=== PATIENT | female | born 1980 | race Caucasian/White ===

== ENCOUNTER 2017-03-19 07:57 | Emergency (ER) | payer SELFPAY ==
[~2017-03-19] VITALS: Ht 177.8 cm; Wt 171.4 kg
[~2017-03-19 07:57] MED LIST: ALBUAER2 INH; AZIT250T PO; CEPH500C PO
[2017-03-19 08:02] VITALS: TEMP 36.9; Ht 177.8 cm; Wt 171.4 kg
--- NOTE | 2017-03-19 08:33 | DIAGNOSTIC IMAGING REPORT ---
RIGHT FOOT MIN 3 VIEWS ROUTINE CLINICAL HISTORY: R foot pain and swelling Right trauma COMPARISON: 08/08/2006 Discussion: interval disruption of the tarsal metatarsal complex of the second through fifth toes. Prominent findings seen at the first tarsometatarsal joint. The appearance suggestive of a Lisfranc fracture dislocation. Subtle periosteal reaction is noted. Considerable soft tissue edema is present. Bony mineralization is somewhat diminished compared to the prior exam. IMPRESSION: Lisfranc fracture dislocation right foot with fractures/displacement/dislocation second through fifth tarsal/metatarsal tarsal complex. Probable involvement first tarsometatarsal joint. Significant soft tissue edema. 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 It is possible these posttraumatic findings are superimposed upon baseline neuropathic joint although this was not seen on the prior study Electronically signed by: Trent Ag M.D. 03/19/2017 8:32 AM Dictated Date/Time: 03/19/2017 8:28 AM
--- NOTE | 2017-03-19 10:36 | EMERGENCY ROOM VISIT NOTE ---
ED Visit Note First contact with patient: 08:08 Chief Complaint: Right foot swelling. History of Present Illness: Ms. Ventura is a 36-year-old white female who ambulates into the ED accompanied by female friend complaining of right foot swelling. Patient reports approximately 2 weeks ago she was stepping off of about possible and as she put down her right foot she reports she heard a cracking sensation. She immediately had pain but that resolved shortly after it occurred. Then approximately one week ago she started noting swelling on the top of her foot. This continued and has been constant and getting worse. She has not identified any aggravating or alleviating factors related to the swelling. Associated with her swelling she reports a mild tingling sensation in the toes. She denies any associated fevers, chills, sweats, skin eruptions, skin color changes, back pain, abdominal pain, decreased appetite, hip pain, thigh pain, knee pain, lower leg pain, ankle pain and she denies any previous significant injuries or surgeries to this area. Review of Systems: As noted above in history of present illness. 8 body systems were reviewed and found to be negative as noted above. Past Medical History: Borderline diabetes. Current Medications: Patient denies. Allergies to Medications: Patient denies. Social History: Patient is currently employed; she feels safe in her home environment; she denies tobacco and alcohol use. Physical Examination: Vital Signs: Date Time Temp Pulse Resp B/P Pulse Ox O2 Delivery O2 Flow Rate FiO2 03/19/17 09:34 90 18 150/89 100 Room Air 03/19/17 08:02 36.9 84 18 157/85 98 Room Air GENERAL: 36-year-old female in no acute distress, nontoxic-appearing, afebrile and hemodynamically stable. NEUROLOGICAL: Awake, alert and oriented to person, place and time. Answering questions appropriately and following commands. No focal motor or sensory deficits. SKIN: Warm, dry and pink. RIGHT LOWER EXTREMITY: No gross bony deformity. No shortening or malrotation. No tenderness in the hip, thigh, knee, ankle. Mild tenderness over the top of the foot with moderate swelling. The skin is slightly erythematous but does not appear cellulitic and it is not hot to the touch. No lymphangitis. No palpable masses or abscesses. Moderate tenderness over the underlying bony structures. Full range of motion in plantar flexion and dorsiflexion of the ankle and flexion and extension of all toes. She was able to distinguish light sensations through all dermatomes of the foot. Capillary refill is brisk. ED Course: Patient is assessed as noted above. Patient was given ice for swelling. Right Foot X-Rays: Were reviewed by myself and read by the radiologist showing a Lisfranc fracture dislocation of the right foot with fracture/displacement/ dislocation of the second through fifth tarsal metatarsal complexes with possible involvement of the first tarsometatarsal joint. Significant soft tissue swelling. Patient was offered pain medication and refused. Patient's case was reviewed with Dr. yang her; we agreed on diagnostic approach, treatment, disposition and plan. Patient's case was consulted with Dr. Florian, orthopedics; he recommended transfer to a tertiary care center for fulfillment specialist. Patient's case was consulted with Dr. Kraus, orthopedist at [facility]; he recommended immobilization and close follow-up with ankle/admission specialist for outpatient evaluation. Patient was placed in a posterior ankle splint to immobilize the entire foot with Ortho-Glass; she was trialed on nonweight bearing crutches but was unsuccessful but was able to tolerate walker use. Patient was educated about today's findings and instructed on her treatment plan ; she verbalizes understanding and agreement with this plan. Clinical Impression: Multiple right foot fractures/dislocations; Lisfranc Fracture. Decision-Making: Initially my differential diagnosis I consider foot fracture, foot contusion, tendinitis, bursitis, foot sprain, and other causes. Disposition: Patient discharged home in stable condition accompanied by her sister; prior to departure she was reassessed and subjectively reported she was pain-free. Plan: Patient was encouraged to alternate ibuprofen or acetaminophen as needed for pain every 3 hours. Patient was encouraged use ice on the foot 4-5 times a day for 20-30 minutes and to keep her foot elevated while at rest. Patient was encouraged to avoid standing for long period some time; she was subsequently signed off of work until followed up at [facility] orthopedic clinic to see specialist within 48 hours. Patient was encouraged return the ED for worsening/uncontrolled swelling, uncontrolled pain, paresthesias or worsening numbness of the foot or any new/ concerning symptoms.
[2017-03-19 11:10] VITALS: BP 144/78; PULSE 87; O2SAT 99
== END 2017-03-19 11:11 | disposition home or self-care (01) ==
LOC: C.EDB 07:59 → C.EDA 11:11
DX: S93.324A Dislocation of tarsometatarsal joint of right foot, initial encounter (principal); S92.201A Fracture of unspecified tarsal bone(s) of right foot, initial encounter for closed fracture; M79.89 Other specified soft tissue disorders; R20.2 Paresthesia of skin; E11.9 Type 2 diabetes mellitus without complications; X58.XXXA Exposure to other specified factors, initial encounter

== ENCOUNTER 2017-04-04 13:51 | Emergency (ER) | payer OTHER ==
[2017-04-04 13:54] VITALS: TEMP 36.8; Ht 177.8 cm
--- NOTE | 2017-04-04 14:39 | DIAGNOSTIC IMAGING REPORT ---
RIGHT FOOT MIN 3 VIEWS ROUTINE CLINICAL HISTORY: Right foot pain. Evaluate for fracture. COMPARISON: Right foot radiographs March 19, 2017. FINDINGS: Disruption of the tarsometatarsal joints is noted with abnormal alignment of multiple tarsometatarsal articulations with extensive sclerosis and bone formation. The appearance is similar to exam of March 19, 2017. Dislocation of the right third metatarsophalangeal joint is unchanged. No interval fracture is noted. There is diffuse soft tissue swelling of the right foot. IMPRESSION: 1. No change in appearance of the right foot since exam of March 19, 2017 with markedly abnormal appearance of the tarsometatarsal joints which could reflect sequela of a Lisfranc fracture/dislocation or a neuropathic arthropathy. Dislocation of the right third metatarsophalangeal joint which is unchanged. 2. Diffuse soft tissue swelling of the right foot. Electronically signed by: Nick Belle M.D. 04/04/2017 2:37 PM Dictated Date/Time: 04/04/2017 2:31 PM
[2017-04-04 15:50] VITALS: BP 127/86; PULSE 106; O2SAT 93
--- NOTE | 2017-04-04 15:58 | EMERGENCY ROOM VISIT NOTE ---
ED Visit Note First contact with patient: 13:59 CHIEF COMPLAINT: Right foot injury 2 weeks ago Patient is a 36-year-old white female who returns to the emergency department accompanied by her sister for evaluation of right foot pain after being diagnosed with a fracture 2 weeks ago. The patient's injury was reportedly another 1-2 weeks prior to that. She was seen and evaluated here on 03/19. She was diagnosed with a Lisfranc fracture dislocation with fractures of her second through fourth metatarsals. Local orthopedic surgeon button clamper at that time was not comfortable managing the injury and recommended referral to a tertiary care center. Referral was made to [facility] in [place]. Please refer to provider and it risk and assurance senior manager notes from the 03/19 visit. Patient was supposed to hear back from orthopedics at [facility]. Patient and her sister return here today stating that they have heard nothing from [facility]. They were unable to find contact information to call on their own. Sister did attempt to contact local providers, but the patient does not have insurance and they would have to pay out of pocket to be seen. Patient reports that she is essentially nonweightbearing in her splint that was placed on 03/19. She has only changed the Shayne wraps. She is using crutches and walker. She has minimal pain. There has been no new fall or trauma. REVIEW OF SYSTEMS: Review of systems as per HPI. All other systems reviewed were negative. At least 6 systems reviewed. PMH: Electronic medical records are reviewed and summarized as above/below. See Problem List. SOCIAL HISTORY: Patient lives at home. She works as a cashier gambling. She does not smoke. PHYSICAL EXAM: Vital Signs: Reviewed Nurse's notes. CONSTITUTIONAL: Patient is a morbidly obese 36-year-old white female who is awake and alert and seated on the gurney in no acute distress. MUSCULOSKELETAL: Examination of the right lower extremity show the intact with a glass splint. This was removed. Skin is intact without ecchymosis or abrasions. Mild soft tissue swelling noted across the dorsum of the foot. She has diffuse tenderness over the dorsum of the foot. She will move the toes normally. There is no pain at the ankle. Capillary refills less than 2 seconds. Sensation to light touch is intact. Distal pulses are easily palpable. EMERGENCY DEPARTMENT COURSE: The patient was seen and examined as above. Her old records are reviewed. Splint was removed, and repeat x-rays were obtained today. Findings are as noted below. farmworkers, Joesph Pryor, was asked to speak with the patient and to help facilitate orthopedic follow-up. She also worked with the patient when they were here 2 weeks ago. She was able to obtain an appointment for the patient for next Friday with Dr. Marrero in the [place] office. Contact information was given to the patient. Patient was returned to a short leg Ortho-Glass splint. She will continue to use her crutches/walker and a nonweight bearing gait. She was given a note to keep her out of work until she is seen and cleared to return. She was discharged home with her sister in good condition. She does not have any physical exam findings to indicate infectious process including cellulitis. No calf pain or examination findings to indicate DVT. RIGHT FOOT MIN 3 VIEWS ROUTINE CLINICAL HISTORY: Right foot pain. Evaluate for fracture. COMPARISON: Right foot radiographs March 19, 2017. FINDINGS: Disruption of the tarsometatarsal joints is noted with abnormal alignment of multiple tarsometatarsal articulations with extensive sclerosis and bone formation. The appearance is similar to exam of March 19, 2017. Dislocation of the right third metatarsophalangeal joint is unchanged. No interval fracture is noted. There is diffuse soft tissue swelling of the right foot. IMPRESSION: 1. No change in appearance of the right foot since exam of March 19, 2017 with markedly abnormal appearance of the tarsometatarsal joints which could reflect sequela of a Lisfranc fracture/dislocation or a neuropathic arthropathy. Dislocation of the right third metatarsophalangeal joint which is unchanged. 2. Diffuse soft tissue swelling of the right foot. Problem List Medical Problems: (1) Asthma, Unspecified Status: Chronic (2) Morbid Obesity Status: Chronic (3) Type 2 Diabetes Mellitus Without Complications Status: Chronic Current/Historical Medications No Active Prescriptions or Reported Meds Allergies Coded Allergies: No Known Allergies (Unverified , NONE, 04/04/17) Vital Signs Date Time Temp Pulse Resp B/P (MAP) Pulse Ox O2 Delivery O2 Flow Rate FiO2 04/04/17 13:54 36.8 120 20 130/87 96 Departure Information Impression Primary Impression: Lisfranc dislocation Additional Impression: Lisfranc fracture Prescriptions No Active Prescriptions or Reported Meds Referrals No Doctor, Assigned (PCP) Patient Instructions [facility] Additional Instructions Ibuprofen(Motrin, Advil) may be used for fever or pain. Use 600mg every six hours as needed. Take with food. Avoid using more than 2400mg in a 24 hour period. Do not use 2400mg per day for more than three consecutive days without physician direction. Prolonged inappropriate use can lead to stomach upset or ulcers. This medication can be taken if you need to drive, work, or perform activities which may be dangerous when taking narcotic pain medication. (AND/OR) Acetaminophen(Tylenol) may be used for fever or pain. Use 1000mg every six hours as needed. Avoid using more than 3000mg in a 24 hour period. This medication can be taken if you need to drive, work, or perform activities which may be dangerous when taking narcotic pain medication. Ice compresses for 20 minutes at a time four times daily for 2-3 days. Use the crutches as instructed with no weight on the right leg. Rest and elevate your injury. Continue current medications. Return to the ER immediately for any numbness, tingling, severe pain, extreme swelling in the extremity or as needed. Follow-up with orthopedic surgery as arranged with Dr. Marrero on April 11 @ 0915 in [place]. Problem Qualifiers
== END 2017-04-04 16:14 | disposition home or self-care (01) ==
LOC: C.EDB 13:53 → C.EDD 16:14
DX: S92.321A Displaced fracture of second metatarsal bone, right foot, initial encounter for closed fracture (principal); S92.331A Displaced fracture of third metatarsal bone, right foot, initial encounter for closed fracture; S92.341A Displaced fracture of fourth metatarsal bone, right foot, initial encounter for closed fracture; S92.351A Displaced fracture of fifth metatarsal bone, right foot, initial encounter for closed fracture; S93.124A Dislocation of metatarsophalangeal joint of right lesser toe(s), initial encounter; X58.XXXA Exposure to other specified factors, initial encounter; E11.9 Type 2 diabetes mellitus without complications; E66.01 Morbid (severe) obesity due to excess calories; J45.909 Unspecified asthma, uncomplicated